=== PATIENT | female | born 1960 | race Caucasian/White ===

== ENCOUNTER 2017-02-12 22:22 | Emergency (ER) | payer BC ==
[~2017-02-12] VITALS: Ht 154.9 cm; Wt 80.7 kg
--- NOTE | ~2017-02-12 | CR142 ---
[facility] A Service of [facility] & [facility] RADIOLOGY TEXT RESULTS PATIENT: PIYUSH PEÑA LOCATION: [facility] : 64 UNIT #: [id number] AGE: [address]: Svetlana Monroy APRN SEX: F ORDER DR: [id number] [facility] [address] [place], [place] [address] [id number] MR#: [id number] Acc #: [id number] NAME: PIYUSH PEÑA : 1960 SEX: F STUDY DATE/TIME: 02/13/2017 0:12 UNIT: TX ROOM: STUDY DESCRIPTION: CR Hand Min 3 Views Rt Attending Physician: Svetlana Monroy A.P.R.N. Ordering Physician: Svetlana Monroy A.P.R.N. Primary Care Physician: Sukhi Real M.D. MEDICAL IMAGING REPORT This report is preliminary unless electronic signature is present EXAM Right hand, 02/13/2017. HISTORY 56-year-old female in the ED after dog bite injury to the right hand today. [place] a pop. Hand pain. TECHNIQUE Three-view right hand series. FINDINGS No fracture, dislocation, or other acute osseous abnormality. No visible radiopaque soft tissue foreign body. IMPRESSION Negative right hand series. Dictated by... Harrison Jimenez M.D. THIS IS AN ELECTRONICALLY VERIFIED REPORT Harrison Jimenez M.D. at 02/13/2017 9:52 PM YOLIW/brook TD: 02/13/2017 08:55 JOB #: [id number] MEDICAL IMAGING REPORT Page 1 of 1 COPY
[~2017-02-12 22:22] MED LIST: PENICILLIN PO
== END 2017-02-13 00:57 | disposition home or self-care (01) ==
LOC: CED 22:22 → CFTX 22:22
DX: S60.221A Contusion of right hand, initial encounter (principal); Z88.1 Allergy status to other antibiotic agents; Z88.5 Allergy status to narcotic agent; W54.0XXA Bitten by dog, initial encounter; Y92.009 Unspecified place in unspecified non-institutional (private) residence as the place of occurrence of the external cause
CPT/HCPCS: 29280; 73130; 99283